=== PATIENT | female | born 1985 | race Asian ===

== ENCOUNTER → 2023-12-27 | Day surgery (SDC) | payer BC ==
[~2023-12-27] MED LIST: LACTATED RINGER'S 1,000 ML ONE; OMEPRAZOLE40 MG PO
[2023-12-27 07:07] VITALS: TEMP 97
[2023-12-27 07:30] VITALS: BP 102/67; PULSE 81; RESP 16; O2SAT 99
== END | disposition home or self-care (01) ==
LOC: OR 05:24
PROVIDERS: ATTEND Internal Medicine Gastroenterology
DX: K21.9 Gastro-esophageal reflux disease without esophagitis (principal); K29.50 Unspecified chronic gastritis without bleeding; Z71.3 Dietary counseling and surveillance; Z78.9 Other specified health status; Z68.23 Body mass index [BMI] 23.0-23.9, adult; Z83.719 Family history of colon polyps, unspecified
CPT/HCPCS: 43239; 81025; 88305; 88342; J7121